=== PATIENT | male | born 1935 | race Caucasian/White ===

== ENCOUNTER 2018-12-02 11:23 | Emergency (ER) | payer OTHER ==
[~2018-12-02] VITALS: Ht 175.3 cm; Wt 81.6 kg
[~2018-12-02 11:23] MED LIST: ENALAPRIL MALEA20 MG; HYDROCHLOROTHIA25 MG; XARELTO20 MG
[2018-12-02] MEDS ORDERED: ZOCOR20 MG (11:57)
[2018-12-02] MEDS ORDERED: XARELTO20 MG (11:58)
[2018-12-02] MEDS ORDERED: LISINOPRIL40 MG (11:58)
== END 2018-12-02 17:52 | disposition home or self-care (01) ==
LOC: ER 11:23
DX: M43.6 Torticollis (principal); R42 Dizziness and giddiness; D64.89 Other specified anemias; M25.512 Pain in left shoulder

== ENCOUNTER 2021-02-22 11:12 | Emergency (ER) | payer OTHER ==
[~2021-02-22] VITALS: Ht 180.3 cm; Wt 86.2 kg
[~2021-02-22 11:12] MED LIST changes: +LISINOPRIL40 MG; +ZOCOR20 MG
[2021-02-22] MEDS ORDERED: ERLEADA60 MG PO (11:17)
== END 2021-02-22 14:00 | disposition home or self-care (01) ==
LOC: ER 11:12
DX: R07.89 Other chest pain (principal)